=== PATIENT | female | born 1960 ===

== ENCOUNTER 2017-11-03 13:05 | Emergency (ER) | payer OTHER ==
[~2017-11-03] VITALS: Ht 167.6 cm; Wt 72.6 kg
[2017-11-03] MEDS ORDERED: HYZAAR 100-12.1 EACH PO (13:11)
[2017-11-03] MEDS ORDERED: TRESIBA FL200 UNIT/1 SQ (13:11)
[2017-11-03] MEDS ORDERED: METFORMIN HCL500 M2 PO (13:12)
== END 2017-11-03 19:04 | disposition home or self-care (01) ==
LOC: ER 13:05
DX: B34.9 Viral infection, unspecified (principal); R50.9 Fever, unspecified